=== PATIENT | female | born 1975 | race Two or more races ===

== ENCOUNTER 2022-08-21 07:45 | Inpatient (IN) | payer OTHER ==
[~2022-08-21] VITALS: Ht 165.1 cm; Wt 68.0 kg
[2022-08-21] MEDS ORDERED: GILENYA PO (09:11)
== END 2022-08-29 11:08 | disposition home or self-care (01) | DRG 743 ==
LOC: ADM 07:45 → O/R 08-27 05:00 → OB/GYN 08-27 05:00 → CIR.AMB 08-27 07:00 → EDSTATUS 08-27 07:45 → OB/GYN 08-27 07:45 → CIR.AMB 08-27 07:45 → OB/GYN 08-27 10:00
PROVIDERS: ADMIT Obstetrics & Gynecology; ATTEND Obstetrics & Gynecology
PROC: 0UT70ZZ Resection of Bilateral Fallopian Tubes, Open Approach (ICD-10-PCS; 2022-08-27)
PROC: 0UT20ZZ Resection of Bilateral Ovaries, Open Approach (ICD-10-PCS; 2022-08-27)
PROC: 0UT90ZZ Resection of Uterus, Open Approach (ICD-10-PCS; principal; 2022-08-27 07:00)
DX: D25.1 Intramural leiomyoma of uterus (principal); N80.03 Adenomyosis of the uterus; N72 Inflammatory disease of cervix uteri; Z20.822 Contact with and (suspected) exposure to COVID-19; N83.11 Corpus luteum cyst of right ovary; N83.12 Corpus luteum cyst of left ovary

== ENCOUNTER → 2022-09-23 | Emergency (ER) | payer OTHER ==
[~2022-09-23] VITALS: Ht 152.4 cm; Wt 68.0 kg
[~2022-09-23] MED LIST: GILENYA PO
== END | disposition home or self-care (01) ==
LOC: ER 21:55
DX: N93.9 Abnormal uterine and vaginal bleeding, unspecified (principal); Z90.710 Acquired absence of both cervix and uterus; Z88.8 Allergy status to other drugs, medicaments and biological substances